=== PATIENT | male | born 2000 | race African-American/Black ===

== ENCOUNTER 2021-09-29 15:59 | Emergency (ER) | payer MEDICAID ==
[~2021-09-29] VITALS: Ht 172.7 cm; Wt 61.2 kg
[2021-09-29 16:43] VITALS: BP 118/76
[2021-09-29] MEDS ORDERED: CIP03OS EACHEYE (16:52)
== END 2021-09-29 17:08 | disposition home or self-care (01) ==
LOC: ER 15:59
DX: H10.9 Unspecified conjunctivitis (principal); F17.210 Nicotine dependence, cigarettes, uncomplicated; Z79.899 Other long term (current) drug therapy